=== PATIENT | male | born 1955 | race Caucasian/White ===

== ENCOUNTER 2018-02-07 08:09 | Inpatient (IN) | payer OTHER ==
[2018-02-07] MEDS ORDERED: KETOROLAC 60 MG/2 ML VIAL IM STA (09:12)
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
[2018-02-07] MEDS ORDERED: BUPIVACAINE 0.25%-EPI 1:200000 PF 10 ML VIAL SUBQ STA (10:46)
[2018-02-07] MEDS ORDERED: IOPAMIDOL-300 100 ML VIAL ONE (10:48)
[2018-02-07] MEDS ORDERED: ONDANSETRON 4 MG/2 ML VIAL IVP STA (11:14)
[2018-02-07] MEDS ORDERED: HYDROmorphone 1 MG/ML CARPUJECT IVP STA (11:14)
[2018-02-07 11:38] LABS: BASOPHILS % (AUTO) 0.2 %; EOSINOPHILS % (AUTO) 0.1 %; HGB - HEMOGLOBIN 13.3 g/dL (14.0-18.0); LYMPHOCYTES # (AUTO) 0.5 10^3/uL (1.5-3.5); LYMPHOCYTES % (AUTO) 4.8 %; MEAN CORPUSCULAR HGB CONC 33.9 g/dL (32.0-36.0); MEAN CORPUSCULAR VOLUME 91.2 fL (80.0-94.0); MEAN PLATELET VOLUME 8.7 fL (7.4-11.4); MONOCYTES # (AUTO) 0.9 10^3/uL (0.0-1.0); MONOCYTES % (AUTO) 9.2 %; NEUTROPHILS # (AUTO) 8.7 10^3/uL (1.5-6.6); NEUTROPHILS % (AUTO) 85.7 %; PLT - PLATELET COUNT 184 10^3/uL (130-450); RED BLOOD COUNT 4.29 10^6/uL (4.70-6.10); WHITE BLOOD COUNT 10.2 x10^3/uL (4.8-10.8)
[2018-02-07] MEDS ORDERED: HYDROmorphone 2 MG/ML VIAL IVP STA (11:38)
[2018-02-07] MEDS ORDERED: LORazepam 2 MG/ML VIAL IVP STA (11:39)
[2018-02-07 11:47] LABS: ALBUMIN 4.4 g/dL (3.2-5.5); ALBUMIN/GLOBULIN RATIO 1.3 (1.0-2.2); BILIRUBIN,TOTAL 0.8 mg/dL (0.2-1.0); CALCIUM 9.2 mg/dL (8.5-10.3); CREATININE 0.7 mg/dL (0.6-1.2); TOTAL PROTEIN 7.7 g/dL (6.7-8.2)
[2018-02-07] MEDS ORDERED: BUPIVACAINE 0.25%-EPI 1:200000 PF 30 ML VIAL SUBQ ONE (12:00)
--- NOTE | 2018-02-07 12:28 | OPERATIVE REPORT ---
Operative Report - General Procedure Date: 02/07/18 Planned Procedure: right chest tube placement Pre-Op Diagnosis: right PTX; multiple rib fx; right clavicle fx Procedure Performed: Right Chest Tube Placement Post Op Diagnosis: Right PTX; multiple rib fractures; right clavicle fracture - Procedure Note Primary Surgeon: Joi Esqueda MD Anesthesia Technique: Local (0.25% Marcaine with epi) Estimated Blood Loss (mL): 2 Complications: none - Other Other Information/Narrative: After informed consent was obtained, the pt was placed in supine position with the right arm positioned away from the chest wall in a manner comfortable for the pt with his clavicle fracture. 1mg Dilaudid and 1mg Ativan was given and the right chest wall was prepped and draped in sterile fashion. An additional 1mg of Dilaudid was given during the procedure. Local anesthetic was injected into the skin, subQ tissues, periostium and intercostal muscles and tissues. A transverse incision was made at the level of the nipple and carried down to the periostium with blunt dissection. The initial rib choice was abandoned because of too much movement of the rib just above it. A location below that was chosen. Additional local was injected. Using a large amanda the pleural cavity was entered taking care to go over the top of the rib. The Amanda was opened and spread. The tube was then inserted into the chest cavity with fogging of the tube noted. It was hooked up to the [employer]-E-Vac system. The wound was then reapproximated with interrupted 2-0 silk sutures with the final suture wrapped around to secure the tube. Sterile dressings were placed. The pt tolerated the procedure well.
[2018-02-07] MEDS ORDERED: ONDANSETRON 4 MG/2 ML VIAL IVP PRN (12:42)
[2018-02-07] MEDS ORDERED: IOPAMIDOL-300 100 ML VIAL IVP ONE (12:58)
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
[2018-02-07] MEDS: D5.45NS W/20 MEQ KCL 1,000 ML IV SCH (14:30)
[2018-02-07] MEDS: SODIUM CHLORIDE FLUSH 0.9% 10 ML SYRINGE IVP SCH ×2 (16:08→18:23)
[2018-02-07] MEDS: HYDROmorphone 0.5 MG/0.5 ML SYRINGE IVP PRN ×4 (16:08→23:52)
[2018-02-07] MEDS: ACETAMINOPHEN 325 MG TABLET PO PRN (18:23)
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
[2018-02-07] MEDS: SODIUM CHLORIDE FLUSH 0.9% 10 ML SYRINGE IVP PRN (20:43)
[2018-02-07] MEDS: CELECOXIB 100 MG CAPSULE PO SCH (20:43)
[2018-02-08] MEDS: D5.45NS W/20 MEQ KCL 1,000 ML IV SCH ×3 (00:40→21:12)
[2018-02-08] MEDS: ACETAMINOPHEN 325 MG TABLET PO PRN ×3 (00:44→17:30)
[2018-02-08] MEDS: SODIUM CHLORIDE FLUSH 0.9% 10 ML SYRINGE IVP SCH ×4 (00:45→23:33)
[2018-02-08] MEDS: HYDROmorphone 0.5 MG/0.5 ML SYRINGE IVP PRN ×8 (04:48→21:12)
[2018-02-08] MEDS: SODIUM CHLORIDE FLUSH 0.9% 10 ML SYRINGE IVP PRN ×6 (04:49→21:13)
[2018-02-08] MEDS: PANTOPRAZOLE 40 MG TABLET PO SCH (06:32)
[2018-02-08] MEDS ORDERED: SENNA 8.6 MG TABLET PO SCH (08:00)
[2018-02-08] MEDS ORDERED: DOCUSATE SODIUM 250 MG CAPSULE PO SCH (08:00)
[2018-02-08] MEDS: CELECOXIB 100 MG CAPSULE PO SCH ×2 (08:44→21:13)
[2018-02-08] MEDS: ENOXAPARIN 40 MG/0.4 ML SYRINGE SUBQ SCH (08:45)
[2018-02-08] MEDS: POLYETHYLENE GLYCOL 3350 17 GM PACKET PO SCH (08:46)
--- NOTE | 2018-02-08 10:50 | PROVIDER PROGRESS NOTE ---
Subjective - Prog Note Date Prog Note Date: 02/08/18 Prog Note Time: 10:47 - Subjective Pt reports feeling: Improved Subjective: Feeling better, no SOB or dyspnea. Good pain control. Doing well with IS and Acapella. Had several questions regarding the clavicle fracture and is requesting an ortho consult. Objective - Vital Signs/Intake & Output Reviewed Vital Signs: Yes Vital Signs: Vital Signs x48h Temp Pulse Resp BP Pulse Ox 02/08/18 07:52 37.0 C 60 18 122/67 94 Intake & Output: Intake & Output 02/05/18 02/06/18 02/07/18 02/08/18 23:59 23:59 23:59 23:59 Intake Total 250 2473.333 Output Total 700 1610 Balance -450 863.333 - Objective General Appearance: positive: No acute distress, Alert Respiratory: positive: No respiratory distress, Breath sounds nml, Other (PluerE -Vac has no air leak with coughing; 20ml bloody drainage) Cardiovascular: positive: Regular rate & rhythm Abdomen: positive: Other (benign) - Lab Results Fish Bones: 02/07/18 10:57 02/07/18 10:57 Assessment/Plan - Problem List (1) Pneumothorax Impression: Improved - tiny residual PTX on yesterday's CT. Today's CXR is still pending, but no air leak and breath sounds are equal. If no PTX on CXR will place on H2O seal. Qualifiers: Pneumothorax type: traumatic Encounter type: initial encounter Qualified Code(s): S27.0XXA - Traumatic pneumothorax, initial encounter (2) Multiple rib fractures Impression: Adequate pain control so far. Continue aggressive pulmonary toilet for pulmonary contusion. Qualifiers: Encounter type: initial encounter Fracture type: closed Laterality: right Qualified Code(s): S22.41XA - Multiple fractures of ribs, right side, initial encounter for closed fracture (3) Right clavicle fracture Impression: After talking with his sister and other family, pt is requesting ortho consult to evaluate the clavicle fracture. Will request as routine consult. Qualifiers: Encounter type: initial encounter Clavicle location: shaft Fracture type : closed Fracture alignment: displaced Qualified Code(s): S42.021A - Displaced fracture of shaft of right clavicle, initial encounter for closed fracture
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
[2018-02-09] MEDS: PANTOPRAZOLE 40 MG TABLET PO SCH (05:57)
[2018-02-09] MEDS: ACETAMINOPHEN 325 MG TABLET PO PRN (05:57)
[2018-02-09] MEDS: D5.45NS W/20 MEQ KCL 1,000 ML IV SCH (05:57)
[2018-02-09] MEDS: HYDROmorphone 0.5 MG/0.5 ML SYRINGE IVP PRN (06:24)
[2018-02-09] MEDS: SODIUM CHLORIDE FLUSH 0.9% 10 ML SYRINGE IVP PRN (06:24)
[2018-02-09] MEDS: HYDROmorphone 1 MG/ML CARPUJECT IVP PRN ×2 (08:08→12:04)
--- NOTE | 2018-02-09 09:15 | XRAY Report ---
Reason: f/u R PTX; (chest tube off of suction) Procedure Date: 02/09/2018 Accession Number: [id number] / [id number] Procedure: XR - Chest 2 View X-Ray CPT Code: 42754 FULL RESULT: EXAM: CHEST RADIOGRAPHY EXAM DATE: 02/09/2018 08:34 AM. CLINICAL HISTORY: F/u R PTX; (chest tube off of suction). COMPARISON: 02/08/2018. 02/07/2018. TECHNIQUE: 2 views. FINDINGS: Lungs/Pleura: Right pleural drain is again seen similar position. No pneumothorax is identified specifically on the right. Mediastinum: Heart size is normal. Aorta is tortuous. Other: Right rib fractures again seen from right chest wall subcutaneous emphysema evident. Degenerative changes of the thoracic spine. Right clavicle fracture also present. IMPRESSION: 1. No pneumothorax definitively evident on the right. 2. Right pleural drain. 3. Right chest wall subcutaneous emphysema. RADIA
[2018-02-09] MEDS: POLYETHYLENE GLYCOL 3350 17 GM PACKET PO SCH (10:06)
[2018-02-09] MEDS: ENOXAPARIN 40 MG/0.4 ML SYRINGE SUBQ SCH (10:07)
[2018-02-09] MEDS: CELECOXIB 100 MG CAPSULE PO SCH (10:07)
[2018-02-09] MEDS: SODIUM CHLORIDE FLUSH 0.9% 10 ML SYRINGE IVP SCH ×2 (10:08→17:03)
[2018-02-09] MEDS ORDERED: BACITRACIN OINT TOP PRN (12:51)
--- NOTE | 2018-02-09 14:13 | XRAY Report ---
Reason: Status post chest tube removal Procedure Date: 02/09/2018 Accession Number: [id number] / [id number] Procedure: XR - Chest 1 View X-Ray CPT Code: 02579 FULL RESULT: EXAM: CHEST RADIOGRAPHY EXAM DATE: 02/09/2018 01:28 PM. CLINICAL HISTORY: Status post chest tube removal. Follow-up posttraumatic right pneumothorax. COMPARISON: Chest 2 view 02/09/2018 at 0834. TECHNIQUE: 1 view. FINDINGS: Lungs/Pleura: Interval removal of the right chest drain. No recurrent right pneumothorax. Increasing in the segmental atelectasis/consolidation/contusion. Stable small moderate right extrathoracic air. Right medial lung base. Mediastinum: Within exam limitations, the cardiomediastinal contour is normal. Other: Acute right rib and clavicle fractures. IMPRESSION: 1. No recurrent right pneumothorax. 2. Increasing segmental consolidation/atelectasis/contusion right medial lung base. 3. Stable tiny right extrathoracic air leak. RADIA
--- NOTE | 2018-02-09 14:42 | PROVIDER PROGRESS NOTE ---
Assessment/Plan - Problem List (1) Pneumothorax Qualifiers: Pneumothorax type: traumatic Encounter type: subsequent encounter Qualified Code(s): S27.0XXD - Traumatic pneumothorax, subsequent encounter Assessment/Plan: Resolving; Chest tube removal today; repeat CXR in am. (2) Multiple rib fractures Qualifiers: Encounter type: subsequent encounter Fracture type: closed Laterality: right Fracture healing: with routine healing Qualified Code(s): S22.41XD - Multiple fractures of ribs, right side, subsequent encounter for fracture with routine healing Assessment/Plan: Healing well; adequate pain control; no evidence of significant displacement or significant pulmonary contusion at present; plan pulmonary toilet, OOB more, oral analgesics, repeat CXR in am. (3) Right clavicle fracture Qualifiers: Encounter type: subsequent encounter Clavicle location: shaft Fracture type: closed Fracture alignment: displaced Fracture healing: with routine healing Qualified Code(s): S42.021D - Displaced fracture of shaft of right clavicle, subsequent encounter for fracture with routine healing Assessment/Plan: stable; awaiting ortho consultation. - Current Meds Current Meds: Current Medications Generic Name Dose Route Start Last Admin Trade Name Freq PRN Reason Stop Dose Admin Acetaminophen 650 mg 02/07/18 12:42 02/09/18 05:57 Tylenol PO 650 mg Q4HR PRN Administration Pain 1 to 4 Enoxaparin Sodium 40 mg 02/08/18 09:00 02/09/18 10:07 Lovenox SUBQ 40 mg DAILY TREVOR Administration Hydromorphone HCl 0.5 mg 02/09/18 06:57 02/09/18 12:04 Dilaudid Inj Carp IVP 0.5 mg Q2HR PRN Administration PAIN 8-10 Pantoprazole Sodium 40 mg 02/08/18 07:00 02/09/18 05:57 Protonix PO 40 mg QDAC TREVOR Administration Polyethylene Glycol 17 gm 02/08/18 09:00 02/09/18 10:06 Miralax PO 17 gm DAILY TREVOR Administration Sodium Chloride 10 ml 02/07/18 12:42 02/09/18 06:24 Normal Saline Flush 0.9% IVP 10 ml PRN PRN Administration NEEDED PER PROVIDER ORDERS Sodium Chloride 10 ml 02/07/18 17:00 02/09/18 10:08 Normal Saline Flush 0.9% IVP 10 ml 0100,0900,1700 TREVOR Administration - Lab Result Fish Bone Diagrams: 02/07/18 10:57 02/07/18 10:57 - Diagnostic Imaging Results Diagnostic Imaging Results: Final report reviewed, Read contemporaneously Diagnostic Imaging Results Comments: CXR today: full expansion of right lung; RLL pulmonary atelectasis; repeat CXR after chest tube removal: no change. - Additional Planning Condition/Complexity: Improved My Orders: My Active Orders 02/09/18 13:35 oxyCODONE [Roxicodone] 5 mg PO Q4HR PRN 02/09/18 13:36 Ibuprofen [Motrin] 600 mg PO Q6HR PRN 02/10/18 05:00 CBC - COMP BLD CT W/AUTO DIFF [HEME] DAILYLAB 02/10/18 09:00 Chest 2 View X-Ray [XR] DAILY Plan Discussed with:: Patient Time Spent: 15-30 minutes Subjective - Subjective Patient Reports: Feeling Better, Resting Comfortably, Chest Pain (exacerbated with activity, deep breathing) Nursing Reports: Pain Objective Vital Signs: Vital Signs - 24 hr 02/08/18 02/09/18 02/09/18 16:00 00:00 05:53 Temperature 36.7 C 36.9 C 36.8 C Heart Rate Heart Rate [ 60 59 L 61 Brachial] Respiratory 18 18 18 Rate Blood Pressure 117/73 124/72 132/73 H [Left Brachial artery] O2 Saturation 96 95 94 02/09/18 02/09/18 09:07 12:01 Temperature 36.7 C 36.7 C Heart Rate 70 Heart Rate [ 72 Brachial] Respiratory 18 18 Rate Blood Pressure 120/83 H [Left Brachial artery] O2 Saturation 93 96 Oxygen O2 Source Room air I&O (Last 24 Hrs): Intake and Output Totals x24h 02/07/18 02/08/18 02/09/18 23:59 23:59 23:59 Intake Total 250 4273.333 2625 Output Total 700 4007 2660 Balance -450 266.333 -35 General: Alert, Oriented x3, Cooperative HEENT: Atraumatic Neck: Supple, No JVD Lymphatic: no adenopathy Neuro: Alert, Non Focal Cardiovascular: Regular rate, No murmurs, Gallops, Rubs Respiratory: No respiratory distress, Other (equal breath sounds; tender right lateral chest wall. Diminished breath sounds at bases. Chest tube patent, no air leak on 24hrs of water seal; chest tube removed; f/u CXR shows full expansion of right lung.) Abdomen: Normal bowel sounds, Soft, No tenderness, No hepatospenomegaly, No masses Extremities: No clubbing, No cyanosis, No edema, No tenderness/swelling Skin: No rashes, No breakdown - Results Results: Laboratory Results WBC 10.2 x10^3/uL (4.8-10.8) 02/07/18 10:57 RBC 4.29 10^6/uL (4.70-6.10) L 02/07/18 10:57 Hgb 13.3 g/dL (14.0-18.0) L 02/07/18 10:57 Hct 39.2 % (42.0-52.0) L 02/07/18 10:57 MCV 91.2 fL (80.0-94.0) 02/07/18 10:57 MCH 31.0 pg (27.0-31.0) 02/07/18 10:57 MCHC 33.9 g/dL (32.0-36.0) 02/07/18 10:57 RDW 14.0 % (12.0-15.0) 02/07/18 10:57 Plt Count 184 10^3/uL (130-450) 02/07/18 10:57 MPV 8.7 fL (7.4-11.4) 02/07/18 10:57 Neut # (Auto) 8.7 10^3/uL (1.5-6.6) H 02/07/18 10:57 Lymph # (Auto) 0.5 10^3/uL (1.5-3.5) L 02/07/18 10:57 [place] # (Auto) 0.9 10^3/uL (0.0-1.0) 02/07/18 10:57 Eos # (Auto) 0.0 10^3/uL (0.0-0.7) 02/07/18 10:57 Baso # (Auto) 0.0 10^3/uL (0.0-0.1) 02/07/18 10:57 Absolute Nucleated RBC 0.00 x10^3/uL 02/07/18 10:57 Nucleated RBC % 0.0 /100WBC 02/07/18 10:57 Sodium 139 mmol/L (135-145) 02/07/18 10:57 Potassium 4.2 mmol/L (3.5-5.0) 02/07/18 10:57 Chloride 104 mmol/L (101-111) 02/07/18 10:57 Carbon Dioxide 27 mmol/L (21-32) 02/07/18 10:57 Anion Gap 8.0 (6-13) 02/07/18 10:57 BUN 13 mg/dL (6-20) 02/07/18 10:57 Creatinine 0.7 mg/dL (0.6-1.2) 02/07/18 10:57 Estimated GFR (MDRD) 114 (>89) 02/07/18 10:57 Glucose 127 mg/dL (70-100) H 02/07/18 10:57 Calcium 9.2 mg/dL (8.5-10.3) 02/07/18 10:57 Total Bilirubin 0.8 mg/dL (0.2-1.0) 02/07/18 10:57 AST 38 IU/L (10-42) 02/07/18 10:57 ALT 34 IU/L (10-60) 02/07/18 10:57 Alkaline Phosphatase 38 IU/L (42-121) L 02/07/18 10:57 Troponin I < 0.04 ng/mL (<0.49) 02/07/18 10:57 Total Protein 7.7 g/dL (6.7-8.2) 02/07/18 10:57 Albumin 4.4 g/dL (3.2-5.5) 02/07/18 10:57 Globulin 3.3 g/dL (2.1-4.2) 02/07/18 10:57 Albumin/Globulin Ratio 1.3 (1.0-2.2) 02/07/18 10:57 Lipase 34 U/L (22-51) 02/07/18 10:57 ABX Reporting Has patient been on IV antibiotics over the past 48 hours?: No
[2018-02-09] MEDS: IBUPROFEN 600 MG TABLET PO PRN ×2 (14:47→20:49)
[2018-02-09] MEDS: oxyCODONE 5 MG TABLET PO PRN ×2 (14:47→19:13)
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
[2018-02-09] MEDS: SENNA 8.6 MG TABLET PO SCH (17:02)
[2018-02-09] MEDS: DOCUSATE SODIUM 250 MG CAPSULE PO SCH (17:02)
[2018-02-10] MEDS: oxyCODONE 5 MG TABLET PO PRN ×3 (01:03→09:43)
[2018-02-10] MEDS: SODIUM CHLORIDE FLUSH 0.9% 10 ML SYRINGE IVP SCH ×2 (01:03→09:13)
[2018-02-10 05:26] LABS: BASOPHILS # (AUTO) 0.1 10^3/uL (0.0-0.1); BASOPHILS % (AUTO) 0.7 %; EOSINOPHILS # (AUTO) 0.8 10^3/uL (0.0-0.7); EOSINOPHILS % (AUTO) 9.6 %; HGB - HEMOGLOBIN 12.8 g/dL (14.0-18.0); LYMPHOCYTES # (AUTO) 0.7 10^3/uL (1.5-3.5); LYMPHOCYTES % (AUTO) 8.2 %; MEAN CORPUSCULAR HEMOGLOBIN 30.8 pg (27.0-31.0); MEAN CORPUSCULAR HGB CONC 33.7 g/dL (32.0-36.0); MEAN CORPUSCULAR VOLUME 91.5 fL (80.0-94.0); MEAN PLATELET VOLUME 8.3 fL (7.4-11.4); MONOCYTES # (AUTO) 1.2 10^3/uL (0.0-1.0); MONOCYTES % (AUTO) 13.5 %; NEUTROPHILS # (AUTO) 5.8 10^3/uL (1.5-6.6); PLT - PLATELET COUNT 165 10^3/uL (130-450); RED BLOOD COUNT 4.17 10^6/uL (4.70-6.10); RED CELL DISTRIBUTION WIDTH 13.8 % (12.0-15.0); WHITE BLOOD COUNT 8.6 x10^3/uL (4.8-10.8)
[2018-02-10] MEDS: PANTOPRAZOLE 40 MG TABLET PO SCH (05:50)
--- NOTE | 2018-02-10 06:58 | XRAY Report ---
Reason: f/u right PTX, pulmonary contusion Procedure Date: 02/10/2018 Accession Number: [id number] / [id number] Procedure: XR - Chest 2 View X-Ray CPT Code: 58655 FULL RESULT: EXAM: CHEST RADIOGRAPHY EXAM DATE: 02/10/2018 06:09 AM. CLINICAL HISTORY: F/u right PTX, pulmonary contusion. COMPARISON: 02/09/2018. TECHNIQUE: 2 views. FINDINGS: Lungs/Pleura: Right basilar opacity is similar compared with the prior exam. Small right pleural effusion. No definite pneumothorax identified. Minimal left basilar opacity is also unchanged. Mediastinum: Heart and mediastinal contours are unremarkable. Other: Right clavicle fracture and right rib fractures. Small amount of soft tissue emphysema in the right chest wall. IMPRESSION: 1. Mild bibasilar pulmonary opacities, right greater than left, with small right pleural effusion. 2. No definite pneumothorax identified. RADIA
--- NOTE | 2018-02-10 07:58 | PROVIDER PROGRESS NOTE ---
Assessment/Plan - Problem List (1) Pneumothorax Qualifiers: Pneumothorax type: traumatic Encounter type: subsequent encounter Qualified Code(s): S27.0XXD - Traumatic pneumothorax, subsequent encounter Assessment/Plan: Resolved. (2) Multiple rib fractures Qualifiers: Encounter type: subsequent encounter Fracture type: closed Laterality: right Fracture healing: with routine healing Qualified Code(s): S22.41XD - Multiple fractures of ribs, right side, subsequent encounter for fracture with routine healing Assessment/Plan: Doing well clinically with good air movement, good pain control with oral analgesics, no evidence of significant contusion/pneumonitis at present. Plan: home with incentive spirometry, daily ambulation, oral analgesics; f/u my office in 1 week. (3) Right clavicle fracture Qualifiers: Encounter type: subsequent encounter Clavicle location: shaft Fracture type: closed Fracture alignment: displaced Fracture healing: with routine healing Qualified Code(s): S42.021D - Displaced fracture of shaft of right clavicle, subsequent encounter for fracture with routine healing Assessment/Plan: Doing well; see Dr. Olivarez's consultation note; plan non operative management with sling and f/u with ortho in 1 week. - Current Meds Current Meds: Current Medications Generic Name Dose Route Start Last Admin Trade Name Freq PRN Reason Stop Dose Admin Acetaminophen 650 mg 02/07/18 12:42 02/09/18 05:57 Tylenol PO 650 mg Q4HR PRN Administration Pain 1 to 4 Docusate Sodium 250 mg 02/09/18 16:39 02/09/18 17:02 Colace 250mg Capsule PO 250 mg DAILY TREVOR Administration Enoxaparin Sodium 40 mg 02/08/18 09:00 02/09/18 10:07 Lovenox SUBQ 40 mg DAILY TREVOR Administration Hydromorphone HCl 0.5 mg 02/09/18 06:57 02/09/18 12:04 Dilaudid Inj Carp IVP 0.5 mg Q2HR PRN Administration PAIN 8-10 Ibuprofen 600 mg 02/09/18 13:36 02/09/18 20:49 Motrin PO 600 mg Q6HR PRN Administration PAIN Oxycodone HCl 5 mg 02/09/18 13:35 02/10/18 05:50 Roxicodone PO 5 mg Q4HR PRN Administration PAIN Pantoprazole Sodium 40 mg 02/08/18 07:00 02/10/18 05:50 Protonix PO 40 mg QDAC TRVEOR Administration Polyethylene Glycol 17 gm 02/08/18 09:00 02/09/18 10:06 Miralax PO 17 gm DAILY TREVOR Administration Senna 17.2 mg 02/09/18 16:40 02/09/18 17:02 Senokot PO 17.2 mg DAILY TREVOR Administration Sodium Chloride 10 ml 02/07/18 12:42 02/09/18 06:24 Normal Saline Flush 0.9% IVP 10 ml PRN PRN Administration NEEDED PER PROVIDER ORDERS Sodium Chloride 10 ml 02/07/18 17:00 02/10/18 01:03 Normal Saline Flush 0.9% IVP 10 ml 0100,0900,1700 TREVOR Administration - Lab Result Fish Bone Diagrams: 02/10/18 05:10 02/07/18 10:57 - Diagnostic Imaging Results Diagnostic Imaging Results: Final report reviewed Diagnostic Imaging Results Comments: CXR today: no recurrent PTX, stable rib fx, stable small bilat pulmonary opacities c/w atelectasis. - Additional Planning Condition/Complexity: Improved My Orders: My Active Orders 02/09/18 13:35 oxyCODONE [Roxicodone] 5 mg PO Q4HR PRN 02/09/18 13:36 Ibuprofen [Motrin] 600 mg PO Q6HR PRN Plan Discussed with:: Patient Time Spent: 15-30 minutes Additional Planning Notes: Home today. Subjective - Subjective Patient Reports: Feeling Better, Resting Comfortably, Chest Pain (well controlled with oral analgesics) Objective Vital Signs: Vital Signs - 24 hr 02/09/18 02/09/18 02/09/18 09:07 12:01 16:13 Temperature 36.7 C 36.7 C 36.9 C Heart Rate 70 Heart Rate [ 72 63 Brachial] Respiratory 18 18 18 Rate Blood Pressure 120/83 H [Left Brachial artery] Blood Pressure 130/68 [Right Brachial artery] O2 Saturation 93 96 95 02/09/18 02/10/18 02/10/18 21:00 01:00 05:42 Temperature 36.8 C 36.4 C L 36.6 C Heart Rate Heart Rate [ 62 62 18 L Brachial] Respiratory 18 18 68 H Rate Blood Pressure [Left Brachial artery] Blood Pressure 117/65 123/65 131/74 H [Right Brachial artery] O2 Saturation 94 95 95 Oxygen O2 Source Room air I&O (Last 24 Hrs): Intake and Output Totals x24h 02/08/18 02/09/18 02/10/18 23:59 23:59 23:59 Intake Total 4273.333 2945 250 Output Total 4007 3760 Balance 266.333 -815 250 General: Alert, Oriented x3, Cooperative, No acute distress HEENT: Mucous membr. moist/pink Neck: Supple, No JVD Neuro: Alert Cardiovascular: Regular rate, Normal S1, Normal S2, No murmurs, Gallops, Rubs Respiratory: No respiratory distress, Breath sounds nml, Other (chest tube dressing dry/intact) Abdomen: Soft, No tenderness, No hepatospenomegaly, No masses Extremities: No edema, No tenderness/swelling Skin: No rashes, No breakdown - Results Results: Laboratory Results WBC 8.6 x10^3/uL (4.8-10.8) 02/10/18 05:10 RBC 4.17 10^6/uL (4.70-6.10) L 02/10/18 05:10 Hgb 12.8 g/dL (14.0-18.0) L 02/10/18 05:10 Hct 38.1 % (42.0-52.0) L 02/10/18 05:10 MCV 91.5 fL (80.0-94.0) 02/10/18 05:10 MCH 30.8 pg (27.0-31.0) 02/10/18 05:10 MCHC 33.7 g/dL (32.0-36.0) 02/10/18 05:10 RDW 13.8 % (12.0-15.0) 02/10/18 05:10 Plt Count 165 10^3/uL (130-450) 02/10/18 05:10 MPV 8.3 fL (7.4-11.4) 02/10/18 05:10 Neut # (Auto) 5.8 10^3/uL (1.5-6.6) 02/10/18 05:10 Lymph # (Auto) 0.7 10^3/uL (1.5-3.5) L 02/10/18 05:10 [place] # (Auto) 1.2 10^3/uL (0.0-1.0) H 02/10/18 05:10 Eos # (Auto) 0.8 10^3/uL (0.0-0.7) H 02/10/18 05:10 Baso # (Auto) 0.1 10^3/uL (0.0-0.1) 02/10/18 05:10 Absolute Nucleated RBC 0.00 x10^3/uL 02/10/18 05:10 Nucleated RBC % 0.0 /100WBC 02/10/18 05:10 Sodium 139 mmol/L (135-145) 02/07/18 10:57 Potassium 4.2 mmol/L (3.5-5.0) 02/07/18 10:57 Chloride 104 mmol/L (101-111) 02/07/18 10:57 Carbon Dioxide 27 mmol/L (21-32) 02/07/18 10:57 Anion Gap 8.0 (6-13) 02/07/18 10:57 BUN 13 mg/dL (6-20) 02/07/18 10:57 Creatinine 0.7 mg/dL (0.6-1.2) 02/07/18 10:57 Estimated GFR (MDRD) 114 (>89) 02/07/18 10:57 Glucose 127 mg/dL (70-100) H 02/07/18 10:57 Calcium 9.2 mg/dL (8.5-10.3) 02/07/18 10:57 Total Bilirubin 0.8 mg/dL (0.2-1.0) 02/07/18 10:57 AST 38 IU/L (10-42) 02/07/18 10:57 ALT 34 IU/L (10-60) 02/07/18 10:57 Alkaline Phosphatase 38 IU/L (42-121) L 02/07/18 10:57 Troponin I < 0.04 ng/mL (<0.49) 02/07/18 10:57 Total Protein 7.7 g/dL (6.7-8.2) 02/07/18 10:57 Albumin 4.4 g/dL (3.2-5.5) 02/07/18 10:57 Globulin 3.3 g/dL (2.1-4.2) 02/07/18 10:57 Albumin/Globulin Ratio 1.3 (1.0-2.2) 02/07/18 10:57 Lipase 34 U/L (22-51) 02/07/18 10:57 ABX Reporting Has patient been on IV antibiotics over the past 48 hours?: No
--- NOTE | 2018-02-10 08:08 | Discharge Plan ---
Discharge Plan Disposition: 01 Home, Self Care Condition: Good Diet: Regular Activity Restrictions: daily ambulation; no lifting or strenuous activities Shower Restrictions: Yes (may remove chest dressing in 2 days and shower, then replace with band aid) Driving Restrictions: Yes (no driving until released by MD) Assistance Devices: Sling (for right arm) Weight Bearing: Full Weight Additional Instructions or Follow Up instructions: follow up with Dr. Betancourt next week; call [phone] for appt follow up with Dr. Olivarez next week; call his office for appt. No Smoking: If you smoke, Please STOP! Call for help. Follow-up with: Provider,Other [Primary Care Provider] -
--- NOTE | 2018-02-10 08:13 | DISCHARGE SUMMARY ---
"Discharge Summary Admit Date: 02/07/18 Discharge Date: 02/10/18 Discharging Provider: Dr. Sai Betancourt Code Status: Attempt Resuscitation Condition at Discharge: Good Discharge Disposition: 01 Home, Self Care Discharge Facility Name: [facility] - DIAGNOSES Admission Diagnoses: 1. Closed right claviclular fracture 2. Multiple right rib fractures 3. Right traumatic pneumothorax Discharge Diagnoses with Status of Each Condition: 1. Right clavicular fracture; healing well. Will be managed with sling and followed by Dr. Olivarez 2. Right pneumothorax; resolved following closed tube thoracostomy therapy. 3. Multiple right rib fractures; healing well. - HPI History of Present Illness: See H&P by Dr. Soni. - CONSULTS | PROCEDURES Consultations: Dr. Olivarez, orthopedics Procedures: Right closed tube thoracostomy - HOSPITAL COURSE Hospital Course: Pt was managed with right sided chest tube, supplemental oxygen, analgesics, pulmonary toilet, and orthopedic consultation. His course was uncomplicated and by the day of d/c his PTX had resolved and his fractures were stable, being managed nonoperatively with good pain control on oral analgesics. - ALLERGIES Allergies/Adverse Reactions: Allergies Allergy/AdvReac Type Severity Reaction Status Date / Time No Known Drug Allergies Allergy Verified 02/07/18 08:28 - MEDICATIONS Home Medications: Ambulatory Orders Medication Instructions Recorded Confirmed Multivitamin [Multiple Vitamins] 1 tab PO DAILY 02/07/18 02/07/18 Acetaminophen 650 mg PO Q6H PRN #50 tablet 02/10/18 Ibuprofen 600 mg PO Q6H PRN #50 tablet 02/10/18 oxyCODONE [Roxicodone] 5 mg PO Q6H PRN #30 tablet 02/10/18 - PHYSICAL EXAM AT DISCHARGE General Appearance: positive: No acute distress, Alert Eyes Bilateral: positive: Conjunctivae nml, No scleral icterus ENT: positive: No signs of dehydration Neck: positive: No JVD, Trachea midline. negative: Lymphadenopathy (R), Lymphadenopathy (L) Respiratory: positive: No respiratory distress, Breath sounds nml. negative: Wheezes, Rales, Rhonchi Cardiovascular: positive: Regular rate & rhythm, No murmur, No gallop Abdomen: positive: Non-tender, No organomegaly, No distention. negative: Hepatomegaly, Splenomegaly, Mass Skin: positive: Color nml, No rash, Warm, Dry. negative: Cyanosis, Diaphoresis Extremities: positive: No pedal edema. negative: Calf tenderness Neurologic/Psychiatric: positive: Oriented x3 - LABS Result Diagrams: 02/10/18 05:10 02/07/18 10:57 - DIAGNOSTIC IMAGING Diagnostic Imaging Results: Final report reviewed Diagnostic Imaging Results Comments: CXR 02/10/18 showed full expansion of right lung, stable multiple right rib and clavicular fx, and findings c/w atelectasis in lung bases. - FOLLOW UP Follow Up: 1 week with Drs. Betancourt & Sher - TIME SPENT Time Spent in Discharge (Minutes): 35"
[2018-02-10 08:57] VITALS: BP 119/77
[2018-02-10] MEDS: POLYETHYLENE GLYCOL 3350 17 GM PACKET PO SCH (09:38)
[2018-02-10] MEDS: ENOXAPARIN 40 MG/0.4 ML SYRINGE SUBQ SCH (09:38)
[2018-02-10] MEDS: SENNA 8.6 MG TABLET PO SCH (09:39)
[2018-02-10] MEDS: IBUPROFEN 600 MG TABLET PO PRN (09:43)
[2018-02-10] MEDS: DOCUSATE SODIUM 250 MG CAPSULE PO SCH (09:43)
== END 2018-02-10 09:52 | disposition home or self-care (01) | DRG 200 ==
LOC: ED 08:09 → MS3 12:42
PROVIDERS: ADMIT Surgery; ATTEND Surgery
PROC: 0W9930Z Drainage of Right Pleural Cavity with Drainage Device, Percutaneous Approach (ICD-10-PCS; principal; 2018-02-07)
DX: S27.0XXA Traumatic pneumothorax, initial encounter (principal); S22.41XA Multiple fractures of ribs, right side, initial encounter for closed fracture; S42.021A Displaced fracture of shaft of right clavicle, initial encounter for closed fracture; V19.3XXA Pedal cyclist (driver) (passenger) injured in unspecified nontraffic accident, initial encounter; Y93.55 Activity, bike riding; Y92.410 Unspecified street and highway as the place of occurrence of the external cause; G47.33 Obstructive sleep apnea (adult) (pediatric); H54.7 Unspecified visual loss
CPT/HCPCS: 32551; 36415; 71045; 71046; 71260; 80053; 83690; 84484; 85025; 96372; 96374; 96376; 99284; 99285

== ENCOUNTER 2024-01-22 07:10 | Outpatient (CLI) | payer MEDICARE, OTHER ==
[2024-01-22 14:51] LABS: BASOPHILS # (AUTO) 0.1 10^3/uL (0.0-0.1); BASOPHILS % (AUTO) 0.9 %; EOSINOPHILS # (AUTO) 0.4 10^3/uL (0.0-0.7); EOSINOPHILS % (AUTO) 5.5 %; HGB - HEMOGLOBIN 13.1 g/dL (14.0-18.0); LYMPHOCYTES # (AUTO) 1.3 10^3/uL (1.5-3.5); LYMPHOCYTES % (AUTO) 19.1 %; MEAN CORPUSCULAR HEMOGLOBIN 30.5 pg (27.0-31.0); MEAN CORPUSCULAR VOLUME 95.6 fL (80.0-94.0); MEAN PLATELET VOLUME 11.2 fL (7.4-11.4); MONOCYTES # (AUTO) 0.9 10^3/uL (0.0-1.0); MONOCYTES % (AUTO) 14.2 %; NEUTROPHILS # (AUTO) 3.9 10^3/uL (1.5-6.6); NEUTROPHILS % (AUTO) 59.7 %; PLT - PLATELET COUNT 201 10^3/uL (130-450); RED BLOOD COUNT 4.29 10^6/uL (4.70-6.10); RED CELL DISTRIBUTION WIDTH 13.9 % (12.0-15.0); WHITE BLOOD COUNT 6.5 x10^3/uL (4.8-10.8)
[2024-01-22 16:38] LABS: ALBUMIN 4.3 g/dL (3.2-5.5); ALBUMIN/GLOBULIN RATIO 1.5 (1.0-2.2); ALKALINE PHOSPHATASE 41 IU/L (42-121); ALT ALANINE AMINOTRANSFERASE 30 IU/L (10-60); AST ASPARTATE AMINOTRANSFERASE 25 IU/L (10-42); BILIRUBIN,TOTAL 0.7 mg/dL (0.2-1.0); BUN - BLOOD UREA NITROGEN 17 mg/dL (6-20); CALCIUM 9.1 mg/dL (8.5-10.3); CARBON DIOXIDE - CO2 28 mmol/L (21-32); CHLORIDE 105 mmol/L (101-111); CHOL/HDL RATIO 2.8 (<5.0); CHOLESTEROL 148 mg/dL; CREATININE 0.8 mg/dL (0.6-1.3); GFR - MDRD 96 (>89); GLUCOSE 103 mg/dL (74-104); HDL CHOLESTEROL 52 mg/dL; LDL CHOLESTEROL,CALCULATED 74 mg/dL; LDL/HDL RATIO 1.4 (<3.6); POTASSIUM 4.1 mmol/L (3.5-4.5); SODIUM 138 mmol/L (135-145); TOTAL PROTEIN 7.2 g/dL (6.4-8.9); TRIGLYCERIDES 108 mg/dL; VLDL CHOLESTEROL 22 mg/dL
== END 2024-01-22 07:11 | disposition home or self-care (01) ==
LOC: LAB.S 07:10
DX: E78.49 Other hyperlipidemia (principal); Z12.5 Encounter for screening for malignant neoplasm of prostate; E66.3 Overweight
CPT/HCPCS: 36415; 80053; 80061; 85025; G0103; 83721; 84153